=== PATIENT | male | born 1935 | race Caucasian/White ===

== ENCOUNTER → 2020-09-12 00:21 | Outpatient (CLI) | payer MEDICARE, SELFPAY ==
[2020-09-12 19:26] LABS: SARS-CoV-2 RNA PCR Negative
== END ==
PROVIDERS: PCP Family Medicine; Visit Provider Internal Medicine Gastroenterology
DX: Z01.812 Encounter for preprocedural laboratory examination (principal); Z20.822 Contact with and (suspected) exposure to COVID-19
CPT/HCPCS: C9803; U0003; U0005

== ENCOUNTER 2020-09-15 00:44 | Day surgery (SDC) | payer MEDICARE, SELFPAY ==
[2020-09-02 10:45] VITALS: BMI 29.1
[2020-09-15 06:55] VITALS: BP 163/77; PULSE 81; RESP 18; TEMP 36.1; O2SAT 98; BMI 29.9
[2020-09-15] MEDS: LACTATED RINGERS 1,000 ML 150 ML IV CONT (07:10)
--- NOTE | 2020-09-15 07:40 | WPDANESEPPF ---
Anes - Initial Pre Proc Eval Procedure: Operation Date: 09/15/20 08:00 Proposed Procedures p Screening Colonoscopy - Kenn Morgan MD Date/Time: 09/15/20 07:40 Surgeon: Kenn Morgan MD Pre Op Diagnosis: hx of colon polyps, screening Patient Data Age: 85 Gender: M Height: 1.7 m Weight: 86.8 kg Last Vital Signs Temp 97.0 F L 09/15/20 06:55 Pulse 81 09/15/20 06:55 Resp 18 09/15/20 06:55 BP 163/77 H 09/15/20 06:55 Pulse Ox 98 09/15/20 06:55 Allergies Allergy/AdvReac Type Severity Reaction Status Date / Time Penicillins Allergy Unknown hives Verified 09/15/20 06:53 venom-wasp Allergy Unknown rash Verified 09/15/20 06:53 Honey Bee Allergy Unknown Unknown Uncoded 09/15/20 06:53 Home Medications Medication Instructions Recorded Confirmed Type allopurinol 300 mg tablet 300 mg PO DAILY #90 tablet 07/07/20 09/15/20 Rx hydrochlorothiazide 12.5 mg tablet See Rx Instructions .ROUTE 07/21/20 09/15/20 Rx .COMPLEX #90 tablet metoprolol succinate 50 mg 50 mg PO DAILY #90 tablet 08/11/20 09/15/20 Rx tablet,extended release 24 hr acetaminophen 650 mg PO TID PRN 09/02/20 09/15/20 History cholecalciferol (vitamin D3) 50 mcg PO BID 09/02/20 09/15/20 History Patient hx anesthesia problems: none Family hx anesthesia problems: none PMFSH Past Medical History Medical History Adenoma Overweight (BMI 25.0-29.9) Surgical History Surgical History History of back surgery History of knee replacement Family History Family History Father Family history of lung cancer Sibling Family history of lung cancer Family history of malignant neoplasm of brain Mother Family history of malignant neoplasm of urinary bladder Social History Social History (Updated 06/15/20 @ 10:36 by Mita Gandara CMA) Smoking packs per day: 1 Smoking cigarettes per day: 20.0 Years smoked: 20 Smoking pack-years: 20.00 Smoking status: Former smoker Second hand tobacco smoke exposure: No Smoking end date: 03/27/00 Alcohol intake: current Drinks per week: 12 Substance use: never Substance use type: does not use Living arrangements: with family Gender identity (if verbalized by the patient): Male Spiritual care concerns: No Anes - Eval Final PreProcedure Day of Procedure 09/15/20 07:40 Patient weight: obese Heart: regular rate and rhythm Lungs: clear to auscultation Airway: Mallampati scale class II Neurological: alert and oriented Last oral intake: >/= 8 hours ASA classification: III Emergent: no Anesthetic plan: proceed Anesthesia type and monitoring: general GIVS and standard monitoring Informed Consent: The patient's anesthetic plan and its attendant risks and benefits were discussed with the patient/family/POA. Questions were solicited and answers provided to the satisfaction of the patient/family/POA.
--- NOTE | 2020-09-15 07:46 | P.CONGI_ITS ---
Assessment and Plan Assessment and plan (1) History of colon polyps: Code(s): Z86.010 - Personal history of colonic polyps Status: Acute Assessment and Plan: Patient had several adenomatous colon polyps removed in 2016. Patient presents today for follow-up examination. Further recommendations may be given after endoscopy. GI Consult Note Consult date/time: 09/15/20 07:46 HPI: Oc Borrero is a 85 year old male Presents for screening colonoscopy. Patient has a history of colon polyps. Patient's last colonoscopy was 2015. Patient states that his current bowel habits are normal. Patient denies abdominal pain. He has had no bleeding. Family history is noncontributory. Review of Systems Review of Systems: All systems reviewed & are unremarkable except as noted in HPI and below PMFSH Past Medical History Medical History Adenoma Overweight (BMI 25.0-29.9) Surgical History Surgical History History of back surgery History of knee replacement Family History Family History Father Family history of lung cancer Sibling Family history of lung cancer Family history of malignant neoplasm of brain Mother Family history of malignant neoplasm of urinary bladder Social History Social History (Updated 06/15/20 @ 10:36 by Mita Gandara CMA) Smoking packs per day: 1 Smoking cigarettes per day: 20.0 Years smoked: 20 Smoking pack-years: 20.00 Smoking status: Former smoker Second hand tobacco smoke exposure: No Smoking end date: 03/27/00 Alcohol intake: current Drinks per week: 12 Substance use: never Substance use type: does not use Living arrangements: with family Gender identity (if verbalized by the patient): Male Spiritual care concerns: No Meds Home Medications and Allergies Home Medications Medication Instructions Recorded Confirmed Type allopurinol 300 mg tablet 300 mg PO DAILY #90 tablet 07/07/20 09/15/20 Rx hydrochlorothiazide 12.5 mg tablet See Rx Instructions .ROUTE 07/21/20 09/15/20 Rx .COMPLEX #90 tablet metoprolol succinate 50 mg 50 mg PO DAILY #90 tablet 08/11/20 09/15/20 Rx tablet,extended release 24 hr acetaminophen 650 mg PO TID PRN 09/02/20 09/15/20 History cholecalciferol (vitamin D3) 50 mcg PO BID 09/02/20 09/15/20 History Allergies Allergy/AdvReac Type Severity Reaction Status Date / Time Penicillins Allergy Unknown hives Verified 09/15/20 06:53 venom-wasp Allergy Unknown rash Verified 09/15/20 06:53 Honey Bee Allergy Unknown Unknown Uncoded 09/15/20 06:53 Vital Signs Vital Signs - 24 hr 09/15/20 06:55 Temperature 97.0 F L Pulse Rate 81 Respiratory Rate 18 Blood Pressure 163/77 H Pulse Oximetry 98 Exam Narrative: Exam Narrative: Physical exam reveals patient be alert. Vital signs stable. HEENT exam is unremarkable. Patient is anicteric. Lungs are clear to auscultation and percussion. Heart is without murmur or extra sounds. Abdominal exam bowel sounds are present soft nontender with no h epatosplenomegaly. Digital external rectal exam is normal.
[2020-09-15 08:30] VITALS: BP 105/71; PULSE 68; RESP 21; O2SAT 98
[2020-09-15 08:40] VITALS: BP 107/70; PULSE 67; RESP 22; O2SAT 98
[2020-09-15 08:50] VITALS: BP 112/64; PULSE 67; RESP 19; O2SAT 98
== END 2020-09-15 09:08 | disposition home or self-care (01) ==
PROVIDERS: PCP Family Medicine; Visit Provider Internal Medicine Gastroenterology
PROC: 0DJD8ZZ Inspection of Lower Intestinal Tract, Via Natural or Artificial Opening Endoscopic (ICD-10-PCS; CPT 45378; principal; 2020-09-15 08:00)
DX: Z12.11 Encounter for screening for malignant neoplasm of colon (principal); D12.5 Benign neoplasm of sigmoid colon; K63.5 Polyp of colon; K64.8 Other hemorrhoids; K57.30 Diverticulosis of large intestine without perforation or abscess without bleeding; Z87.891 Personal history of nicotine dependence
CPT/HCPCS: 45385; 88305; C9803; J2704; J7120; U0003; U0005

== ENCOUNTER 2021-05-27 02:18 | Day surgery (SDC) | payer MEDICARE, SELFPAY ==
--- NOTE | 2021-05-19 10:02 | PC.NURSE ---
Report to the Outpatient Waiting Room, entrance under the green pavilion located off [facility], at time _1130 on date __05/27/21 . OR Time: 1230 . - You and your visitor will be asked a series of questions to screen for COVID 19 for your protection. - A mask is required within the hospital. Preoperative COVID Testing Requirements: No COVID Test needed if: (proof is required; if not received patient will have Rapid Test prior to entry) - Patient has received COVID Vaccine at least 14 days prior to procedure date or - Patient has positive COVID test result within last 90 days of surgery date. COVID Test needed if above criteria is not met If not COVID vaccinated a COVID test must be conducted within 72 hours of surgery and patient is asked to isolate self from time of testing until procedure. You will go to the [facility] for your COVID testing. The [facility] is located at the corner of [address] [facility]. You will only be called if COVID results are positive and your surgeon may reschedule your elective surgery date. LIGHT BREAKFAST MORNING OF SURGERY Take the following medications with a SIP of water the morning of surgery: __ALL ROUTINE MORNING MEDICATIONS Medications to discontinue per physician NONE Date to take last dose Please no make-up, nail northern irish, hairspray, perfume, deodorant, or body powder the day of surgery. No jewelry (including any body piercings) or valuables the day of surgery, leave them at home. Please take a shower or bath the night before, or the morning of, surgery with an antibacterial soap. Wear comfortable, loose fitting clothing. Children are encouraged to wear pajamas. - Jewelry must be removed prior to entering the operating room. Rings and piercings that are not removed may be cut off. - The hospital will not accept responsibility for valuables. - Please leave all valuables, including medications, at home the day of surgery. MAY DRIVE YOURSELF HOME-LOCAL ANESTHESIA- OR HAVE SOMEONE DRIVE YOU HOME For Pediatric surgeries, we recommend two adults accompany the child home (only one inside the building at this time). One visitor will be allowed to accompany the patient into the hospital. Patients visitor will be instructed to remain with patient at all times or leave the building. We will allow the visitor to come back to the postoperative area when patient is ready. Follow any additional instructions given to you from your surgeon. Telephone instructions given to __PATIENT and asked if any additional questions and then verbalized understanding. Patient advised to call surgeon office or pre surgery nurse liaison [phone] if any additional questions.
[2021-05-19 10:06] VITALS: BMI 30.4
[2021-05-27] VITALS (7 sets, daily range): BP systolic 142–195; BP diastolic 76–89; PULSE 73–81; RESP 16–18; TEMP 36.4; O2SAT 97–100
--- NOTE | 2021-05-27 07:19 | WPDHPUPDATE1 ---
History and Physical Update Update Date/Time: 05/27/21 07:19 History and Physical has been reviewed, including an updated exam of the patient. There are NO changes in the patient's condition. Risks, benefits, and alternatives have been discussed and questions answered. Patient agrees to proceed with procedure.
--- NOTE | 2021-05-27 15:42 | W.PM.PROC2 ---
Procedure Note - Detailed Date of Procedure 05/27/21 Pre-op Diagnosis bilateral carpal tunnel syndrome Post-op Diagnosis Same Procedure Performed Bilateral open carpal tunnel release Surgeon Oc Baker MD Anesthesia Local Description of Procedure The 2 palm was were marked with the patient's agreement in the holding area. He was taken to the operating room and placed supine on the table. A time-out was held and the sites were prepped and draped in usual fashion. The markings were satisfactory and the 2 sites were locally infiltrated with 1% lidocaine with epinephrine. The tourniquet was placed 1st on the left side was inflated to 250 mmHg. The incision was made as marked and dissection carried through the subcutaneous tissue to the palmar aponeurosis. This and the palmar retinaculum were incised with a 15. Blade opening the canal. Under 3 point retraction the ligament was divided distally and proximally to completely release it. There was no unusual anatomy noted. The skin was closed with interrupted 4-0 nylon suture. The tourniquet was released prior to the closure. The usual bandage was applied and attention was turned to the right side. The sided been anesthetized at the same time as the left side. The tourniquet was inflated to 250 mmHg. The incision was made in the palm and dissected bluntly through the subcutaneous tissue. This incision lay directly in line with the Dupuytren's cord leading to the 4th ray and some release of that was performed. This allowed exposure to the transverse retinaculum. This was incised with a 15 blade opening the canal. Under 3 point retraction the ligament was divided distally and proximally to completely release. There was no unusual anatomy noted beyond its entrance. The skin was closed with interrupted 4-0 nylon suture. The tourniquet was released just prior to that and the usual bandage was applied. He is discharged home with instructions in wound care follow-up and a prescription for hydrocodone 5/325 5. He has tramadol at home already Estimated Blood Loss 2 Tourniquet Time 6 Drains No Packing No Pathology None sent Complications No immediate complications Condition Stable Disposition Same day
== END 2021-05-27 15:54 | disposition home or self-care (01) ==
PROVIDERS: PCP Family Medicine; Visit Provider Plastic Surgery
PROC: (CPT 64721; principal; 2021-05-27 14:30)
DX: G56.03 Carpal tunnel syndrome, bilateral upper limbs (principal)
CPT/HCPCS: 64721

== ENCOUNTER 2022-01-13 01:09 | Day surgery (SDC) | payer MEDICARE, SELFPAY ==
--- NOTE | 2021-12-31 15:41 | PC.NURSE ---
Report to the Outpatient Waiting Room, entrance under the green pavilion located off [facility], at time _0600 on date __01/13/22 . OR Time: _729 . Time changes happen often and if your time is changed the preop area will call you the afternoon before. - You and your visitor will be asked to self-screen and do not enter if you have any COVID symptoms. - We encourage only one visitor and NO visitors under age 16 are allowed at this time. Your visitor will receive communication by the phone number that is given day of service. - The patient visitor is requested to social distance or may leave the building when not with patient due to restrictions. - A mask is required within the hospital. Patients may have clear liquids (water, carbonated beverages, clear teas, apple juice) until 3 hours prior to surgery with a maximum of 20 ounces. - No food from midnight until time of surgery - Infants may have breast milk until 4 hours before surgery, formula 6 hours prior to surgery. - Children will be allowed to drink immediately following surgery. If applicable, please bring a bottle or sippy cup to assist with drinking. Juice, water, soda, and popsicles are readily available. For infants on formula, please bring formula the day of surgery. Pacifiers are allowed. Take the following medications with a SIP of water the morning of surgery: ___NONE Medications to discontinue per physician ___ALL VITAMINS AND SUPPLEMENTS 3 DAYS PRE OP Date to take last dose____01/09/22 Please no make-up, nail japanese, hairspray, perfume, deodorant, or body powder the day of surgery. No jewelry (including any body piercings) or valuables the day of surgery, leave them at home. Please take a shower or bath the night before, or the morning of, surgery with an antibacterial soap. Wear comfortable, loose fitting clothing. Children are encouraged to wear pajamas. - Jewelry must be removed prior to entering the operating room. Rings and piercings that are not removed may be cut off. - The hospital will not accept responsibility for valuables. - Please leave all valuables, including medications, at home the day of surgery. If you are going home after surgery, a licensed drivers license examiner must drive you home. - NO public transportation without another adult. - We recommend that an adult stay with you for 24 hours following discharge. - We also recommend that you do not drive, make important decision, drink alcoholic beverages, or take any drugs that were not prescribed by your health care provider for at least 24 hours after your discharge time. For Pediatric surgeries, we recommend two adults accompany the child home. Follow any additional instructions given to you from your surgeon. If you or anyone in your household have experienced Covid symptoms in the past week, please notify your surgeon or the nurse liaison at the phone number below for possible testing. Telephone instructions given to _PATIENT and asked if any additional questions and then verbalized understanding. Patient advised to call surgeon office or pre surgery nurse liaison [phone] if any additional questions.
[2021-12-31 15:45] VITALS: BMI 28.8
--- NOTE | 2022-01-12 14:28 | WPDANESEPPF ---
Anes - Initial Pre Proc Eval Procedure: Operation Date: 01/13/22 07:30 Proposed Procedures p Partial Palmar Fasciectomy Right Hand at Ring Finger - Oc Baker MD Date/Time: 01/12/22 14:28 Surgeon: Oc Baker MD Pre Op Diagnosis: dupuytren's contracture right ring finger Patient Data Age: 86 Gender: M Height: 1.73 m Weight: 86.2 kg Allergies Allergy/AdvReac Type Severity Reaction Status Date / Time Penicillins Allergy Unknown hives Verified 01/13/22 06:49 venom-wasp Allergy Unknown rash Verified 01/13/22 06:49 Honey Bee AdvReac Intermediate swelling Uncoded 12/31/21 15:33 at site Home Medications Medication Instructions Recorded Confirmed Type acetaminophen 325 mg tablet 650 mg PO TID PRN Back Pain 09/02/20 01/13/22 History allopurinol 300 mg tablet 300 mg PO DAILY #90 tabs 06/09/21 01/13/22 Rx cholecalciferol (vitamin D3) 50 50 mcg PO BID #180 tabs 06/09/21 01/13/22 Rx mcg (2,000 unit) tablet hydrochlorothiazide 12.5 mg tablet See Rx Instructions .Route 06/09/21 01/13/22 Rx .COMPLEX #90 tabs metoprolol succinate 50 mg 50 mg PO DAILY #90 tabs 06/09/21 01/13/22 Rx tablet,extended release 24 hr (Toprol XL) pyridoxine (vitamin B6) 100 mg 100 mg PO DAILY 12/31/21 01/13/22 History tablet Patient hx anesthesia problems: none Family hx anesthesia problems: none Results Review: All pre-operative results and documents have been reviewed as part of the pre-operative evaluation. [facility] Past Medical History Medical History Adenoma Neuropathic pain of hand Overweight (BMI 25.0-29.9) Surgical History Surgical History History of back surgery History of knee replacement Family History Family History Father Family history of lung cancer Sibling Family history of lung cancer Family history of malignant neoplasm of brain Mother Family history of malignant neoplasm of urinary bladder Social History Social History (Updated 12/14/21 @ 10:56 by Blaire Langley) Social History: Caffeine-Coffee Smoking packs per day: 1 Smoking cigarettes per day: 20.0 Years smoked: 20 Smoking pack-years: 20.00 Smoking status: Former smoker Tobacco type: cigarettes Second hand tobacco smoke exposure: No Smoking end date: 03/27/00 Alcohol intake: current Drinks per week: 12 Alcohol use details: BEER Substance use: never Substance use type: does not use Living arrangements: with family Gender identity (if verbalized by the patient): Male Spiritual care concerns: No Anes - Eval Final PreProcedure Day of Procedure 01/12/22 14:28 Patient weight: overweight Heart: regular rate and rhythm Lungs: clear to auscultation Airway: Mallampati scale class II Neurological: alert and oriented Last oral intake: >/= 8 hours ASA classification: III Emergent: no Anesthetic plan: proceed Anesthesia type and monitoring: general GIVS and standard monitoring Results Review: All pre-operative results and documents have been reviewed as part of the pre-operative evaluation. Informed Consent: The patient's anesthetic plan and its attendant risks and benefits were discussed with the patient/family/POA. Questions were solicited and answers provided to the satisfaction of the patient/family/POA.
[2022-01-13 07:04] VITALS: BP 170/84; PULSE 74; RESP 16; TEMP 36.1; O2SAT 99
[2022-01-13] MEDS: LACTATED RINGERS 1,000 ML 30 ML IV CONT (07:07)
--- NOTE | 2022-01-13 07:14 | WPDHPUPDATE1 ---
History and Physical Update Update Date/Time: 01/13/22 07:14 History and Physical has been reviewed, including an updated exam of the patient. There are NO changes in the patient's condition. Risks, benefits, and alternatives have been discussed and questions answered. Patient agrees to proceed with procedure.
[2022-01-13] MEDS: ceFAZolin 2 GM/D5W 50 ML 2 GM/50 ML BAG IVPB (07:29)
[2022-01-13 09:54] VITALS: BP 143/81; PULSE 80; RESP 16; O2SAT 96
--- NOTE | 2022-01-13 10:16 | P.OP_ITS ---
Procedure Note - Detailed Date of Procedure 01/13/22 Pre-op Diagnosis dupuytren's contracture right ring finger Post-op Diagnosis Same Procedure Performed Right partial palmar fasciectomy to the palm and ring finger Surgeon Oc Baker MD Handkerchief Presser Virgen Anesthesia General Description of Procedure The affected right palm was marked on the patient in the holding area. The patient was then taken to the operating room placed supine on the operating table. Time-out was held confirmed. He was given general anesthesia as the right upper extremity was prepped and draped in fashion. Markings were made on palm for access incisions the extremity was exsanguinated and the tourniquet i nflated to 250 mmHg. 2% lidocaine with epinephrine was infiltrated to common digital nerves and palmar skin.. The transverse incision was made 1st at the distal palmar crease to allow access to the ring and middle finger fascia. Dense cords were identified ring finger site. These were carefully dissected from neurovascular bundles exposed and removed. The volar midline incision was made on the finger. This was eventually extended in Julia fashion to include the palmar incision. Large nodules of triptans fibrosis were identified in the finger. These were removed by 5 neurovascular bundles proximally and dissecting them distally. There was a significant spiral cord on the ulnar side with displacement radially of the neurovascular bundle. This cord extended out to the D IP joint. The flexor tendon sheath was opened in a couple of spots but the juan ramon was preserved. The tourniquet was released prior to closure a few bleeding points were cauterized some pressure was held on the hand for about 5 minutes. The wound was closed with interrupted and running 5 0 nylon suture. Two Z-plasties were designed on the ring finger and rotated. The finger was perfused readily after release of the tourniquet and full extension of all joints was achieved. Patient tolerated this procedure well. Is being discharged home with a prescription for hydrocodone 5/325 6. Bactrim for 5 days Estimated Blood Loss -25.0 Tourniquet Time 69 Drains No Packing No Pathology None sent Complications No immediate complications Condition Stable Disposition Same day
[2022-01-13 10:20] VITALS: BP 140/71; PULSE 74; RESP 16
== END 2022-01-13 11:03 | disposition home or self-care (01) ==
PROVIDERS: PCP Family Medicine; Visit Provider Plastic Surgery
PROC: (CPT 26045; principal; 2022-01-13 07:30)
DX: M72.0 Palmar fascial fibromatosis [Dupuytren] (principal); Z87.891 Personal history of nicotine dependence
CPT/HCPCS: 26123; A9270; J0690; J1100; J1885; J2704; J3010; J7120

== ENCOUNTER 2022-07-20 21:00 | Emergency (ER) | payer MEDICARE, SELFPAY ==
[2022-07-20 21:02] VITALS: BP 139/67; PULSE 80; RESP 17; TEMP 36.3; O2SAT 99
--- NOTE | 2022-07-20 21:27 | ED.GENADULT ---
HPI - General Adult General Chief complaint: Allergic Reaction Stated complaint: facial swelling Time Seen by Provider: 07/20/22 21:09 History of Present Illness HPI narrative: This is an 87-year-old male who started on lisinopril earlier today. 2 hours later he developed swelling of his upper lip. Patient has no voice changes, no difficulty breathing, no sensations of throat closure or difficulty swallowing his own secretions. He does not have nausea vomiting diarrhea wheezing or skin changes. Patient states the swelling is improving. Related Data Home Medications Medication Instructions Recorded Confirmed acetaminophen 325 mg tablet 650 mg PO TID PRN Back Pain 09/02/20 07/20/22 pyridoxine (vitamin B6) 100 mg 100 mg PO DAILY 12/31/21 07/20/22 tablet Allergies Allergy/AdvReac Type Severity Reaction Status Date / Time Penicillins Allergy Unknown hives Verified 07/20/22 08:25 venom-wasp Allergy Unknown rash Verified 07/20/22 08:25 Honey Bee AdvReac Intermediate swelling Uncoded 07/20/22 08:25 at site [facility] Past Medical History Medical History Adenoma Neuropathic pain of hand Overweight (BMI 25.0-29.9) Surgical History Surgical History H/O fasciotomy History of back surgery History of knee replacement S/p bilateral carpal tunnel release Family History Family History Father Family history of lung cancer Sibling Family history of lung cancer Family history of malignant neoplasm of brain Mother Family history of malignant neoplasm of urinary bladder Social History Social History Social History: Caffeine-Coffee Smoking packs per day: 1 Smoking cigarettes per day: 20.0 Years smoked: 20 Smoking pack-years: 20.00 Smoking status: Former smoker Tobacco type: cigarettes Second hand tobacco smoke exposure: No Smoking end date: 03/27/00 Alcohol intake: current Drinks per week: 12 Alcohol use details: BEER Substance use: never Substance use type: does not use Lack of Transportation: No Lack of Food: Never True Current Housing: I Have Housing Concerned About Future Housing: No Difficulty Paying Gas/Electric Bills: No Difficulty Paying for Meds: No Currently Unemployed: YES Education: High School Diploma/GED Difficulty w/ Childcare or Family Care: No Living arrangements: with family Occupation/Education: retired Gender identity (if verbalized by the patient): Male Spiritual care concerns: No Exam Narrative: APPEARANCE: No apparent distress. Head: Patient has angioedema of the upper lip, no swelling of the tongue or uvula EYES: EOMI, NOSE: Atraumatic NECK: Trachea midline RESPIRATORY: No increased rate of breathing, clear to auscultation CARDIOVASCULAR: RRR, ABDOMINAL: Non-distended, soft no guarding or rebound MUSCULOSKELETAl: No obvious deformities NEURO: Alert. Moving 4/4 extremities SKIN:: Warm, dry. Normal color, no hives PSYCHIATRIC: Normal affect Course Vital Signs Vital signs: Vital Signs Temperature 97.3 F L 07/20/22 21:02 Pulse Rate 80 07/20/22 21:02 Respiratory Rate 17 07/20/22 21:02 Blood Pressure 139/67 07/20/22 21:02 Pulse Oximetry 99 07/20/22 21:02 Oxygen Delivery Room Air 07/20/22 21:02 Temperature 97.3 F L 07/20/22 21:02 Pulse Rate 79 07/20/22 22:45 Respiratory Rate 20 07/20/22 22:45 Blood Pressure 109/78 07/20/22 22:45 Pulse Oximetry 100 07/20/22 22:45 Oxygen Delivery Room Air 07/20/22 21:02 Medical Decision Making MDM Narrative Medical decision making narrative: -Presentation: 87-year-old male presenting with lip swelling after starting lisinopril. -DDX includes but is not limited to: Angioedema due to lisinopril, allergic reaction -C
[2022-07-20] MEDS: FAMOTIDINE 20 MG/2 ML VIAL 40 MG IV PUSH (21:35)
[2022-07-20] MEDS: diphenhydrAMINE HCl INJ 50 MG/ML VIAL 25 MG IV PUSH (21:43)
[2022-07-20 22:45] VITALS: BP 109/78; PULSE 79; RESP 20; O2SAT 100
--- NOTE | 2022-07-20 22:46 | PC.NURSE ---
Swelling has improved after IV medications and pt is requesting to go home. Dr. Winn notifiied.
== END 2022-07-20 23:15 | disposition home or self-care (01) ==
LOC: ANHED 22:20
PROVIDERS: Emergency Provider Emergency Medicine; PCP Family Medicine
DX: T78.3XXA Angioneurotic edema, initial encounter (principal); I10 Essential (primary) hypertension; E66.3 Overweight; Z68.30 Body mass index [BMI] 30.0-30.9, adult; Z96.659 Presence of unspecified artificial knee joint; Z87.891 Personal history of nicotine dependence
CPT/HCPCS: 96374; 96375; 99284; J1100; J1200

== ENCOUNTER 2023-06-13 17:15 | Emergency (ER) | payer MEDICARE, SELFPAY ==
--- NOTE | ~2023-06-13 | XR_ITS ---
EXAM: XR lumbar spine 2-3V DATE: 06/13/2023 18:06 HISTORY: R sided LBP X2d . COMPARISON: MR L-spine 06/01/2018. FINDINGS: Interval posterior fusion hardware removal. 5 nonrib-bearing lumbar-type vertebral bodies. Pedicles intact. Stable grade 1 retrolistheses at L1-2, L2-3, and L4-5. Grade 3 anterolisthesis at L5 -S1. Stable moderate wedge compression deformity at L4. Stable mild height loss at L1, L3, and L5. Mu ltilevel moderate degenerative disc disease. Multilevel severe facet arthropathy and osseous fusions. L4-5 laminectomy defects. IMPRESSION: Grade 3 anterolisthesis at L5-S1, which has worsened slightly since the prior examination in 2018. Reviewed, dictated and finalized at location K. IMPRESSION: Grade 3 anterolisthesis at L5-S1, which has worsened slightly since the prior examination in 2019.
[2023-06-13 17:44] VITALS: BP 187/82; PULSE 68; RESP 16; TEMP 36.6; O2SAT 99
--- NOTE | 2023-06-13 17:50 | ED.BACK ---
HPI - Back Pain/Injury General Chief Complaint: Back Pain/Injury <MATI Benavides Last Filed: 06/13/23 18:11> Stated Complaint: back pain <MATI Benavides Last Filed: 06/13/23 18:11> Time Seen by Provider: 06/13/23 17:50 <MATI Benavides Last Filed: 06/13/23 18:11> Focused HPI: Patient is an 88 y/o male who presents to the ED with c/o lower back pain. Patient reports he was working on his tractor on Monday and was bent over for a prolonged period. Has been having increased pain in right lower back since then. Pain worse with movement, changing positions. Denies radiation of pain down RLE or around to his abdomen. He took 2 naproxen today for the pain which has relieved it slightly. Denies bowel or bladder incontinence, numbness, weakness, saddle anesthesia, abdominal pain, nausea, vomiting. Does report history of sciatica. GENERAL: Elderly, well-nourished, and in no acute distress. HEAD: Normocephalic, atraumatic. CHEST: Clear to auscultation. ?No respiratory distress. HEART: Regular rate and rhythm.? MSK: No appreciable midline spinal tenderness throughout lumbar region on exam. Sensation is intact. NEURO: ?Alert and oriented x3. No focal deficits. Patient screened in triage and initial orders placed.? ?Additional care and disposition to be based upon?diagnostic testing and treatment. <MATI Benavides Last Filed: 06/13/23 18:11> Source: patient <MATI Benavides Last Filed: 06/13/23 18:11> Mode of arrival: ambulatory <MATI Benavides Last Filed: 06/13/23 18:11> Limitations: no limitations <MATI Benavides Last Filed: 06/13/23 18:11> History of Present Illness HPI Narrative: Patient is an 88-year-old male presenting with lower back pain. States that he has a history of lower back pain that he is able to stay active and his pain is generally well controlled. States that he did a lot of yd work over the weekend which involved heavy lifting and a lot of bending. States that he had some right-sided lower back pain yesterday but he took it easy and did not think much of it. Today he unfortunately had worsening pain in his right lower back into his right buttocks. He took some ibuprofen which did take the edge off. States that it is worse with certain movements and positions. No numbness or weakness. No saddle anesthesia, loss of bladder or bowel control, no fever. Denies flank or abdominal pain. No hematuria or dysuria. <Vicki Nunez MD - Last Filed: 06/16/23 21:32> Related Data Home Medications: Home Medications Medication Instructions Recorded Confirmed acetaminophen 325 mg tablet 650 mg PO TID PRN Back Pain 09/02/20 12/19/22 pyridoxine (vitamin B6) 100 mg 100 mg PO DAILY 12/31/21 12/19/22 tablet <Yesica Weaver PA-C - Last Filed: 06/13/23 18:11> Allergies/Adverse Reactions: Allergies Allergy/AdvReac Type Severity Reaction Status Date / Time lisinopril Allergy Severe angioedema Verified 06/16/23 13:12 Penicillins Allergy Unknown hives Verified 06/16/23 13:12 venom-wasp Allergy Unknown rash Verified 06/16/23 13:12 Honey Bee AdvReac Intermediate swelling Uncoded 06/16/23 13:12 at site <Yesica Weaver PA-C - Last Filed: 06/13/23 18:11> Review of Systems Review of Systems: All systems reviewed & are unremarkable except as noted in HPI and below <Vicki Nunez MD - Last Filed: 06/16/23 21:32> PMFSH Past Medical History Medical History: Medical History Adenoma Neuropathic pain of hand Overweight (BMI 25.0-29.9) <Yesica Weaver PA-C - Last Filed: 06/13/23 18:11> Surgical History Surgical History: Surgical History H/O fasciotomy History of back surgery History of knee replacement S/p bila
[2023-06-13] MEDS: ACETAMINOPHEN 500 MG TABLET 1000 MG PO (18:12)
[2023-06-13] MEDS: traMADol HCL (*CRX) 25 MG TABLET PO (18:12)
[2023-06-13] MEDS: methylPREDNISolone 4 MG TABLET 8 MG PO (20:51)
[2023-06-13] MEDS: CYCLOBENZAPRINE HCL 10 MG TABLET PO (20:51)
[2023-06-13 21:07] VITALS: BP 127/76; PULSE 86; RESP 16; O2SAT 97
== END 2023-06-13 21:08 | disposition home or self-care (01) ==
PROVIDERS: Emergency Provider Emergency Medicine; PCP Family Medicine
DX: S39.012A Strain of muscle, fascia and tendon of lower back, initial encounter (principal); E66.3 Overweight; Z68.29 Body mass index [BMI] 29.0-29.9, adult; Z96.659 Presence of unspecified artificial knee joint; X50.1XXA Overexertion from prolonged static or awkward postures, initial encounter
CPT/HCPCS: 72100; 99283; A9270

== ENCOUNTER 2025-02-26 14:54 | Outpatient (CLI) | payer MEDICARE, SELFPAY ==
--- NOTE | ~2025-02-26 | MR_ITS ---
EXAMINATION: MR humerus RT wo con DATE: 02/26/2025 15:52 INDICATION: Other injury of muscle, fascia and tendon at the right upper arm TECHNIQUE: Magnetic resonance imaging (MRI) of the right humerus/upper arm was performed without intravenous contrast. Sequences included axial, sagittal and coronal T1-weighted FSE and fluid sensitive FSE STIR. COMPARISON: None. FINDINGS: There is a full-thickness tear and distal retraction of the long head of the biceps tendon. The lax undulating portion of the tendon distal to the tear is retracted 10 cm caudally to the cephalad aspect of the intertubercular groove. No torn tendon material identified above level of the intertubercular groove and the tear likely occurs at the biceps labral complex. There is mild intramuscular edema at the proximal muscle belly and small amount of epimysial fluid extending along the periphery of the muscle belly. The distal biceps brachii tendon appears to remain intact. Remaining musculature of the right upper arm is unremarkable. There is mild osteoarthritis at the right glenohumeral joint with degenerative tearing along the posterior glenoid labrum. There is likely full- thickness tear along the superior facet footplate of the supraspinatus tendon with medial retraction of the tear margin to the level of the acromioclavicular joint. Small glenohumeral joint effusion which extends through the full- thickness rotator cuff tear to indicate with small amount of fluid in the subacromial/subdeltoid bursa. Bone marrow signal is unremarkable with no fracture or pathologic marrow replacing process. 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 Mild to moderate osteoarthritis at the right elbow with no joint effusion.. IMPRESSION: 1. Complete tear and distal retraction of the long head biceps tendon. 2. Full-thickness supraspinatus tendon tear evaluation of which is significantly more limited than on a dedicated small [id number] MRI of the shoulder. 3. Mild glenohumeral osteoarthritis with tear of the posterior glenoid labrum. Reviewed, dictated and finalized at location A. TRUCK OPERATOR IMPRESSION: 1. Complete tear and distal retraction of the long head biceps tendon. 2. Full-thickness supraspinatus tendon tear evaluation of which is significantl y more limited than on a dedicated small [id number] MRI of the shoulder. 3. Mild glenohumeral osteoarthritis with tear of the posterior glenoid labrum.
--- OUTSIDE RECORDS SUMMARY | 2025-02-26 16:25 | XMS_ITS | Clinical Summary ---
Author Organization [facility] Address [address] [place] [id number] Phone Care Team Providers Care Mold Insert Changer Name Role Phone Benito Burleson MD Primary Care Provider [phone]- [phone] Allergies Active Allergy Reactions Criticality Noted Date Comments Bee Pollen Swelling High 10/11/2016 Penicillins Hives High 09/28/2016 Medications metoprolol succinate (TOPROL XL) 25 mg Extended Release 24 hour tablet Take 50 mg by mouth daily at bedtime . Active hydroCHLOROthia zide (HYDRODIURIL) 12.5 mg tablet Take 12.5 mg by mouth daily at bedtime . Active allopurinol (ZYLOPRIM) 300 mg tablet Take 300 mg by mouth daily at bedtime. Active OTHER prosta-plex plus . Active ASCORBIC ACID (VITAMIN C ORAL) Take by mouth. Activ e CHOLECALCIFEROL , VITAMIN D3, (VITAMIN D3 ORAL) Take by mouth. Activ e OTHER Proprietary amino acid blend . Active OTHER Saw palmetto . Activ e OTHER Sarpy leaf juice . Active OTHER DIM . Active OTHER Buchu leaf . Active OTHER [place] silk . Active acetaminophen (TYLENOL) 325 mg tablet Take 325 mg by mouth every 4 hours as needed. Active JULISSA PEN NEEDLE 32 gauge x 32 Needle 1 a day. 100 Each 9 Active FORTEO 20 mcg/dose - 600 mcg/2.4 mL pen Inject 20 mcg by subcutaneous injection daily at bedtime. 9.6 mL 2 0 Active loratadine (CLARITIN) 10 mg tablet Take 10 mg by mouth daily. 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 Gout 10/13/2016 Lumbar stenosis 10/13/2016 Benign hypertension 10/13/2016 Immunizations Immunization Administration Dates Next Due Influenza Seasonal Unspecified Formulation IM Family History Medical History Relation Name Comments Cancer Brother Bladder Lung Cancer Father Relation Name Status Comments Brother Father Social History Tobacco Use Types Packs/Day Years Used Date Smoking Tobacco: Former Cigarettes 1 30 0 09/28/1966 - 09/28/1996 Smokeless Tobacco: Never Alcohol Use Standard Drinks/Week Comments Yes 2 (1 standard drink = 0.6 oz pur e alcohol) socially Sex and Gender Information Value Date Recorded Sex Assigned at Not on file Legal Sex Male 11:42 AM CDT Gender Identity Not on file Sexual Orientation Not on file Last Filed Vital Signs Vital Sign Reading Time Taken Comments Blood Pressure 158/89 01/13/2020 9:09 AM CDT Pulse 71 01/13/2020 9:09 AM CDT Temperature 37.1 C (98.8 F) 01/13/2020 9:09 AM CDT Respiratory Rate 16 07/29/2019 11:02 AM CDT Oxygen Saturation 93% 07/25/2018 9:17 AM CDT Inhaled Oxygen Concentration - - Weight 87.5 kg (193 lb) 01/13/2020 9:09 AM CDT Height 167.6 cm (5' 6) 01/13/2020 9:09 AM CDT Body Mass Index 31.15 01/13/2020 9:09 AM CDT Plan of Treatment Health Maintenance Due Date Last Done Comments DTAP/TDAP/TD VACCINES (1 - Tdap) 1954 PNEUMOCOCCAL VACCINE 50+ YEARS (1 of 1 - PCV) 05/15/18 87 ZOSTER VACCINE (1 of 2) 1986 RSV VACCINE (60+ or ) (1 - 1-dose 75+ series) 2011 INFLUENZA VACCINE (#1) 2024 01/20/2018 Medical Devices Implanted Type Area Primary Operator Device Identifier Shelf Expiration Date Model / Serial / Lot Hemostatic Surgiflo 8ml W/Thrombin 2994 - [id number] Implanted:Qty: 1 on 06/27/2018 by Domingo Loza MD at [facility] Hemostatic N/A: Spine Lumbar J[employer]J- [employer] [id number] 08/25/2019 2994 / / [id number] Hemostatic Surgifoam 1gm 1977 - [id number] Implanted:Qty: 1 on 06/27/2018 by Domingo Loza MD at [facility] Hemostatic N/A: Spine Lumbar J[employer]- [employer] 02/08/20201977 / / [id number] Sealant Floseal 10ml [id number] - [id number] Implanted:Qty: 1 on 10/11/2016 by Mehul Santana MD at [facility] Sealant WEEKS- BI[employer]CI[employer] [id number] 12/24/2017 [id number] / / [id number] Sealant Floseal 10ml [id number] - [id number] Implanted:Qty: 1 on 10/11/2016 by Mehul Santana MD at [facility] Sealant N/A: Back WEEKS- [employer] [id number] 12/24/2017 [id number] / / [id number] Knee Replacements Bilaterally Explanted Type Area Primary Operator Device Identifier Shelf Expiration Date Model / Serial / Lot Diego Xpdm Crv W/Line 95mm [id number] - [id number] Implanted:Qty: 2 on 10/11/2016 by Mehul Santana MD at [facility] Explanted:Qty: 2 on 06/27/2018 by Domingo Loza MD at [facility] Diego N/A: Back J&J- [employer] [id number] / / Description:All Depu spinal hardware was processed on [id number]. Set Screw Xpdm Verse 5.5mm Sload Implanted:Qty: 6 on 10/11/2016 by Mehul Santana MD at [facility] Explanted:Qty: 6 on 06/27/2018 by Domingo Loza MD at [facility] Screw N/A: Back J&J- [employer] / LOAD OCTOBER 07 Screw Xpdm Verse 7x50mm Sload Implanted:Qty: 6 on 10/11/2016 by Mehul Santana MD at [facility] Explanted:Qty: 6 on 06/27/2018 by Domingo Loza MD at [facility] Screw N/A: Back J[employer]- [employer] [id number] / LOAD OCTOBER 07 Cross Cnnctr Xpdm Sfx 5.5 Ti 1894- - [id number] Implanted:Qty: 1 on 10/11/2016 by Mehul Santana MD at [facility] Explanted:Qty: 1 on 06/27/2018 by Domingo Loza MD at [facility] Spine N/A: Back J[employer]J- [employer] / / Insurance AETNA PPO MCR RX OPTUM RX Member Subscriber Plan / Payer (Ef fective 2015-Present) Name:Oc Borrero Relation to Subscriber:Self Name:Oc Borrero Payer ID:Not on file Group ID:[id number] Type:RX Medicare Part D Address: [place], [place] Advance Directives For more information, please contact: [phone] * Full Code (Latest Code Status on File) Date Activated Date Inactivated Comments 06/27/2018 12:11 PM 06/29/2018 7:34 PM * Full Code Date Activated Date Inactivated Comments 06/27/2018 11:31 AM 06/27/2018 12:11 PM * Full Code Date Activated Date Inactivated Comments 06/27/2018 6:42 AM 06/27/2018 11:31 AM * Full Code Date Activated Date Inactivated Comments 10/11/2016 4:36 PM 10/15/2016 4:58 PM * Full Code Date Activated Date Inactivated Comments 10/11/2016 12:06 PM 10/11/2016 4:36 PM Care Teams Mold Insert Changer Relationship Specialty Start Date End Date Benito Burleson MD PCP - General Family Practice 09/06/16
--- OUTSIDE RECORDS SUMMARY | 2025-02-26 16:25 | XMS_ITS | Clinical Summary ---
Author Organization [facility] Address [address] [place] [address] Care Team Providers Care Glass Laminating Operator Name Role Phone Benito Burleson MD Primary Care Provider +1- [phone] Allergies Active Allergy Reactions Criticality Noted Date Comments Penicillins Rash Low 11/03/2019 Medications metoprolol succinate ER 25 MG 24 hr tablet Take 50 mg by mouth. Active allopurinol 300 MG tablet 06/25/2019 Active hydroCHLOROthiaz mindi 12.5 MG tablet Take 12.5 mg by mouth. Active acetaminophen 325 MG tablet Take 325 mg by mouth every 4 (four) hours as needed. Active Active Problems Problem Noted Date Diagnosed Date Foreign body of right eye, initial encounter 11/2019 Social History Tobacco Use Types Packs/Day Years Used Date Smoking Tobacco: Former Smokeless Tobacco: Never Sex and Gender Information Value Date Recorded Sex Assigned at Not on file Legal Sex Male 6:42 PM CDT Gender Identity Not on file Sexual Orientation Not on file Last Filed Vital Signs Vital Sign Reading Time Taken Comments Blood Pressure 182/93 11/03/2019 9:45 AM CDT Pulse 79 11/03/2019 9:45 AM CDT Temperature 36.4 C (97.6 F) 11/03/2019 9:45 AM CDT Respiratory Rate 16 11/03/2019 9:45 AM CDT Oxygen Saturation 97% 11/03/2019 9:45 AM CDT Inhaled Oxygen Concentration - - Weight 86.2 kg (190 lb) 11/03/2019 9:45 AM CDT Height 170.2 cm (5' 7) 11/03/2019 9:45 AM CDT Body Mass Index 29.76 11/03/2019 9:45 AM CDT Plan of Treatment Health Maintenance Due Date Last Done Comments DTaP, Tdap and Td Vaccines ( 1 - Tdap) 1955 Pneumococcal Vaccine: 50+ Ye ars (1 of 1 - PCV) 1986 Zoster Vaccines (1 of 2) 1986 Annual Medicare Wellness Visit 2001 RSV Immunization or 60+ Years (1 - 1-dose 75+ series) 2011 COVID-19 Vaccine (1 - 2024-2 6 season) 2024 Influenza Adult (#1) 2024 01/20/2018 Hepatitis A Vaccines Aged Out No long er eligible based on patient's age to complete this topic Meningococcal B Vaccine Aged Out No l onger eligible based on patient's age to complete this topic Meningococcal Vaccine Aged Out No elinor linnea eligible based on patient's age to complete this topic RSV Immunizations Under 20 Months Aged Out No longer eligible based on patient's age to complete this topic Insurance AETNA MEDICARE Care Teams Glass Laminating Operator Relationship Specialty Start Date End Date Benito Burleson MD PCP - General FAMILY PRACTICE 11/03/19
--- OUTSIDE RECORDS SUMMARY | 2025-02-26 16:26 | XMS_ITS | Clinical Summary ---
Author Organization [facility] Address [address] [place] [address] Care Team Providers Care Coffee Shop Aide Name Role Phone Benito Burleson MD Primary Care Provider [phone] -[phone] Medications No known medications Active Problems No known active problems Social History Tobacco Use Types Packs/Day Years Used Date Smoking Tobacco: Unknown Personal Safety Answer Date Recorded Getting School Help Needed Not on file 06/10 Sex and Gender Information Value Date Recorded Sex Assigned at Not on file Legal Sex Male 8:33 AM PEER FINANCIAL COUNSELOR Gender Identity Not on file Sexual Orientation Not on file Plan of Treatment Not on file Insurance AETNA MEDICARE AETNA MEDICARE GOLD Care Teams Coffee Shop Aide Relationship Specialty Start Date End Date Benito Burleson MD PCP - General Family Medicine 07/25/22
== END 2025-02-26 14:55 | disposition home or self-care (01) ==
PROVIDERS: PCP Family Medicine; Visit Provider Nurse Practitioner Family
DX: S46.191A Other injury of muscle, fascia and tendon of long head of biceps, right arm, initial encounter (principal); X58.XXXA Exposure to other specified factors, initial encounter; M75.101 Unspecified rotator cuff tear or rupture of right shoulder, not specified as traumatic; M19.011 Primary osteoarthritis, right shoulder
CPT/HCPCS: 73218

== ENCOUNTER 2025-03-07 09:11 | Outpatient (CLI) | payer MEDICARE, SELFPAY ==
--- NOTE | ~2025-03-07 | MR_ITS ---
EXAM/PROCEDURE: MR shoulder RT wo con HISTORY: M25.511 - Pain in right shoulder COMPARISON: February 26, 2025 TECHNIQUE: Right shoulder MRI FINDINGS: No fracture subluxation or dislocation. Large full-thickness retracted tear of the supraspinatus tendon with the tendon retracted to the level of the superior glenoid. Moderate size joint effusion is present. Partial-thickness tear of the infraspinatus tendon which is not fully torn or retracted. The subscapularis tendon is also thickened and abnormal signal. Teres minor unremarkable. Moderate to severe osteoarthritic degenerative changes at the glenohumeral joint and advanced arthrosis at the AC joint with abnormal signal essentially throughout the labrum; no definite acute labral tear seen. No gross ligamentous disruption seen. Long head of the biceps tendon absent within the bicipital groove consistent with rupture and retraction. Spinoglenoid recess and suprascapular notch regions appear normal. IMPRESSION: 1. Previously described complete tear and retraction of the long head biceps tendon. 2. Large markedly retracted supraspinatus tendon tear with the tendon retracted to the level of the superior glenoid. Partial-thickness tears involving the infraspinatus and subscapularis tendons also probably present. 3. Advanced degenerative changes throughout the glenohumeral joint. Reviewed, dictated and finalized at location A. UE PACKER IMPRESSION: 1. Previously described complete tear and retraction of the long head biceps te ndon. 2. Large markedly retracted supraspinatus tendon tear with the tendon retracted to the level of the superior glenoid. Partial-thickness tears involving the in fraspinatus and subscapularis tendons also probably present. 3. Advanced degenerative changes throughout the glenohumeral joint.
== END 2025-03-07 09:12 | disposition home or self-care (01) ==
PROVIDERS: PCP Family Medicine; Visit Provider Orthopaedic Surgery
DX: S46.111A Strain of muscle, fascia and tendon of long head of biceps, right arm, initial encounter (principal); S46.812A Strain of other muscles, fascia and tendons at shoulder and upper arm level, left arm, initial encounter; S46.011A Strain of muscle(s) and tendon(s) of the rotator cuff of right shoulder, initial encounter; X58.XXXA Exposure to other specified factors, initial encounter; M19.011 Primary osteoarthritis, right shoulder
CPT/HCPCS: 73221